=== PATIENT | male | born 1990 | race Two or more races ===

== ENCOUNTER 2019-10-28 21:24 | Emergency (ER) | payer MEDICAID ==
[~2019-10-28] VITALS: Ht 152.4 cm; Wt 60.1 kg
[2019-10-28 21:50] VITALS: BP 124/65
== END 2019-10-28 21:51 | disposition home or self-care (01) ==
LOC: ER 21:27
DX: K04.7 Periapical abscess without sinus (principal)

== ENCOUNTER 2024-12-12 16:56 | Emergency (ER) | payer MEDICAID ==
[~2024-12-12] VITALS: Ht 152.4 cm; Wt 64.9 kg
[2024-12-12 17:45] VITALS: BP 124/85; TEMP 98.6
[2024-12-12 18:01] VITALS: PULSE 63
--- NOTE | 2024-12-12 18:01 | ED.PDOC ---
History of Present Illness HPI Comments 34-year-old male who comes in with chief complaint of left-sided rib pain. The pain increases on respiration but none on palpation. The patient states that the symptoms started yesterday. He denies any type of trauma but he states that he works out occasionally. There has been no nausea, vomiting or shortness for breath. He did have some diarrhea yesterday but it has resolved. The patient denies any fever or chills. Chief Complaint: Rib Pain Time Seen by MD: 17:18 Primary Care Provider: NONE Reviewed Notes: Nurses Notes, Medications, Allergies (No allergies to medications) Allergies: Coded Allergies: NO KNOWN ALLERGIES (Unverified , 10/28/19) Information Source: Patient Mode of Arrival: Ambulatory Severity: Mild Timing: Days Duration: Since onset Prehospital treatment: None Associated signs and symptoms left rib pain Past Medical History PAST MEDICAL HISTORY: Denies Surgical History (Other): Lipoma removed from the neck Family History Family History: Unknown Social History Smoker: Non-Smoker Alcohol: Occasionally Drugs: Denies Drug Use Lives In: Home Constitutional: denies: chills, diaphoresis, fatigue, fever, malaise, sweats, weakness, others EENTM: denies: blurred vision, double vision, ear bleeding, ear discharge, ear drainage, ear pain, ear ringing, eye pain, eye redness, hearing loss, mouth pain, mouth swelling, nasal discharge, nose bleeding, nose congestion, nose pain, photophobia, tearing, throat pain, throat swelling, voice changes, others Respiratory: denies: cough, hemoptysis, orthopnea, SOB at rest, shortness of breath, SOB with excertion, stridor, wheezing, others Cardiovascular: reports: chest pain; denies: dizzy spells, diaphoresis, Dyspnea on exertion, edema, irregular heart beat, left arm pain, lightheadedness, palpitations, PND, syncope, others Gastrointestinal: denies: abdomen distended, abdominal pain, blood streaked bowels, constipated, diarrhea, dysphagia, difficulty swallowing, hematemesis, melena, nausea, poor appetite, poor fluid intake, rectal bleeding, rectal pain, vomiting, others Genitourinary: denies: burning, dysuria, flank pain, frequency, hematuria, inco ntinence, penile discharge, penile sore, pain, testicle pain, testicle swelling, urgency, others Neurological: denies: dizziness, fainting, headache, left sided numbness, left sided weakness, numbness, paresthesia, pre-existing deficit, right sided numbness, right sided weakness, seizure, speech problems, tingling, tremors, weakness, others Musculoskeletal: denies: back pain, gout, joint pain, joint swelling, muscle pain, muscle stiffness, neck pain, others Integumetry: denies: bruises, change in color, change in hair/nails, dryness, laceration, lesions, lumps, rash, wounds, others Allergic/Immunocompromised: denies: Difficulty Healing, Frequent Infections, Hives, Itching, others Hematologic/Lymphatic: denies: anemia, blood clots, easy bleeding, easy bruising, swollen glands, others Endocrine: denies: excessive hunger, excessive sweating, excessive thirst, excessive urination, flushing, intolerance to cold, intolerance to heat, unexplained weight gain, unexplained weight loss, others Psychiatric: denies: anxiety, bipolar disorder, depression, hopeless, panic disorder, schizophrenia, sleepless, suicidal, others Physical Exam General Appearance: No Apparent Distress HEENT: Normal ENT Inspection, Pharynx Normal, TMs Normal Neck: Full Range of Motion, Non-Tender, Normal, Normal Inspection Respiratory: Chest Non-Tender, Lungs Clear, No Accessory Muscle Use, No Respiratory Distress, Normal Breath Sounds Cardiovascular: No Edema, No JVD, No Murmur, No Gallop, Normal Peripheral Pulses, Regular Rate/Rhythm Breast Exam: Deferred Gastrointestinal: No Organomegaly, Non Tender, No Pulsatile Mass, Normal Bowel Sounds, Soft Genitalia: Deferred Pelvic: Deferred Rectal: Deferred Extremities: No calf tenderness, Normal capillary refill, Normal inspection, Normal range of motion, Non-tender, No pedal edema Musculoskeletal : Apperance: Normal 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 Was a procedure done?: No EKG EKG : Pulse Rate (adult): 63 [place]: Normal Cardiac Rhythm: NSR Block: None ST: Nonsp Differential Dx Considerations may include: Fracture, strain, pneumonia X-Ray, Labs, Meds, VS Vital Signs Date Time Temp Pulse Resp B/P (MAP) Pulse Ox O2 Delivery O2 Flow Rate FiO2 12/12/24 18:01 63 12/12/24 17:45 98.6 67 16 124/85 (98) 97 98.6 12/12/24 17:37 63 The chest x-ray is negative. At this time, the patient was being discharged The diagnosis is musculoskeletal pain The patient will follow up with the primary care doctor The patient will return to the emergency department's the condition worsens. We do not feel that this patient's chest pain is cardiac in nature Images Reviewed?: Images reviewed and evaluated by me Time of 1ST Reevaluation: 18:01 Reevaluation 1ST: Unchanged Patient Education/Counseling: Diagnosis, Treatment, Prognosis, Need For Follow Up Family Education/Counseling: No Family Present Departure 1 Departure Time of Disposition: 18:44 Impression: Primary Impression: Musculoskeletal chest pain Disposition: 01 HOME / SELF CARE / HOMELESS Condition: Fair Discharged With: Self Critical Care Note Critical Care Time?: No Stability Stability form required: No Heart Score Heart Score: Heart Score Response (Comments) Value History Slightly Suspicious 0 EKG Normal 0 Age <45 0 Risk Factors No known risk factors 0 Troponin N/A 0 Total 0 HUSSEIN MCCLELLAND MD Dec 12, 2024 18:01
--- NOTE | 2024-12-12 18:26 | DVH ---
EXAM: XY CHEST TWO VIEWS ROUTINE CLINICAL HISTORY: cp left sided COMPARISON: None TECHNIQUE: Frontal and lateral view of the chest was obtained FINDINGS: Lines and Tubes: None Lungs: No focal consolidation. Pleura: No effusion. No pneumothorax. Cardiomediastinal contours: Unremarkable Bones: No acute osseous abnormality. IMPRESSION: No acute cardiopulmonary disease.
[2024-12-12 21:00] VITALS: RESP 18; O2SAT 97
--- NOTE | 2024-12-13 13:22 | ECG ---
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
== END 2024-12-12 21:16 | disposition home or self-care (01) ==
LOC: ER 16:56
DX: R07.89 Other chest pain (principal); Z98.890 Other specified postprocedural states
CPT/HCPCS: 71046; 93005